=== PATIENT | female | born 1985 | race Caucasian/White ===

== ENCOUNTER 2019-11-29 08:40 | Inpatient (IN) | payer BC ==
[~2019-11-29] VITALS: Ht 165.1 cm; Wt 59.5 kg
[2019-11-29] MEDS ORDERED: NS 1,000 ML IV ONE ×2 (09:45→11:00)
[2019-11-29] MEDS ORDERED: ONDANSETRON 4MG/2ML VIAL IV ONE ×2 (09:45→15:30)
[2019-11-29] MEDS: MORPHINE 2 MG/ML 1ML VIAL (J2270) IV PRN ×4 (09:54→22:25)
[2019-11-29] MEDS ORDERED: ISOVUE-370 76% 100ML VIAL As Ordered ONE (10:01)
[2019-11-29 10:02] LABS: BASO # 0.1 10^3/uL (0.0-0.2); BASO % 0.4 % (0.0-1.0); EOS # 0.1 10^3/uL (0.0-0.5); EOS % 0.4 % (0.0-3.0); HEMATOCRIT 40.8 % (36.0-47.0); HEMOGLOBIN 13.3 g/dl (12.0-15.5); LYMPH # 1.5 10^3/uL (1.5-5.0); LYMPH % 9.3 % (24.0-44.0); MEAN CORPUSCULAR HEMOGLOBIN 28.1 pg (27.0-33.0); MEAN CORPUSCULAR HGB CONC 32.6 g/dl (32.0-36.5); MEAN CORPUSCULAR VOLUME 86.1 fl (80.0-96.0); MONO # 0.4 10^3/uL (0.0-0.8); MONO % 2.4 % (0.0-5.0); NEUTROPHILS # 13.7 10^3/uL (1.5-8.5); NEUTROPHILS % 87.1 % (36.0-66.0); PLATELET COUNT, AUTOMATED 330 10^3/uL (150-450); RED BLOOD COUNT 4.74 10^6/uL (4.00-5.40); WHITE BLOOD COUNT 15.7 10^3/uL (4.0-10.0)
[2019-11-29 10:26] LABS: ALBUMIN 4.3 GM/DL (3.2-5.2); BILIRUBIN,DIRECT 0.1 MG/DL (0.0-0.2); BILIRUBIN,TOTAL 0.3 MG/DL (0.2-1.0)
--- NOTE | 2019-11-29 10:30 | REPVR ---
PROCEDURE INFORMATION: Exam: CT Abdomen And Pelvis With Contrast Exam date and time: 11/29/2019 9:38 AM Age: 34 years old Clinical indication: Abdominal pain; Additional info: Lower abdominal pain TECHNIQUE: Imaging protocol: Computed tomography of the abdomen and pelvis with intravenous contrast. Radiation optimization: All CT scans at this facility use at least one of these dose optimization techniques: automated exposure control; mA and/or kV adjustment per patient size (includes targeted exams where dose is matched to clinical indication); or iterative reconstruction. Contrast material: ISOVUE 370; Contrast volume: 100 ml; Contrast route: INTRAVENOUS (IV); COMPARISON: No relevant prior studies available. FINDINGS: Pleural space: No acute airspace or pleural disease. Liver: Focal fatty infiltration of the liver. Punctate calcification contiguous with the posterior capsular surface of the liver. Gallbladder and bile ducts: Status post cholecystectomy. Pancreas: Borderline pancreatic ductal dilatation without focal mass. Spleen: No splenomegaly. Adrenals: Unremarkable adrenals. Kidneys and ureters: Normal renal morphology. No hydronephrosis. Stomach and bowel: Mild wall thickening in the nondistended stomach and jejunum. Marked wall thickening in the right and transverse colon, in a pattern of colitis. Appendix: Status post appendectomy. Intraperitoneal space: Dependent free fluid in the cul-de-sac. Vasculature: Normal caliber of the abdominal aorta. Lymph nodes: Subcentimeter lymph nodes. Bladder: Unremarkable bladder. Reproductive: Ovarian follicles and cysts, including a 1.5 cm left ovarian cyst. Bones/joints: Lumbar disc bulging. Soft tissues: Bilateral breast implants. Small fat containing umbilical hernia. IMPRESSION: 1. Marked wall thickening in the right and transverse colon, in a pattern of colitis. 2. Dependent free fluid in the cul-de-sac. 3. Additional findings as described above. Electronically signed by: Luis Heart On 11/29/2019 10:30:36 AM
[2019-11-29] MEDS ORDERED: metroNIDAZOLE 500 MG in IV 1 EA IV ONE (11:00)
[2019-11-29] MEDS ORDERED: CIPROFLOXACIN 400 MG in IV 1 EA IV ONE (11:00)
[2019-11-29] MEDS ORDERED: MORPHINE 2 MG/ML 1ML VIAL (J2270) IV PRN (15:30)
--- NOTE | 2019-11-29 16:34 | HPEPDOC ---
[facility] Medical History & Physical Date of Admission Nov 29, 2019 Date of Service: Nov 29, 2019 Attending Physician: SIL MARINA MD History and Physical CHIEF COMPLAINT: abd pain HISTORY OF PRESENT ILLNESS: 34 y/o F with PMHx endometriosis, colitis in reporting negative colonoscopy who presents with abd pain. Pt notes pain started at 2m, sharp, crampy greatest in lower quad and left side. +N/V/diarrhea, which have resolved. No bleeding. Pt denies cp/sob/palpitations. Currently starting to feel better but still with nausea and abd discomfort.Will place under observation. PAST MEDICAL HISTORY: As per HPI PAST SURGICAL HISTORY: appendectomy, cholecystomy SOCIAL HISTORY: denies tobacco, alcohol, illicit drugs FAMILY HISTORY: No f/m hx of GI dz ALLERGIES: Please see below. REVIEW OF SYSTEMS: HEENT: Denies sore throat/headache CARDIOVASCULAR: Denies chest pain/palpitations RESPIRATORY: Denies shortness of breath/cough GASTROINTESTINAL: + nausea/vomiting GENITOURINARY: Denies dysuria/urinary urgency. MUSCULOSKELETAL: Denies myalgias/arthralgias NEUROLOGICAL: Denies any focal weakness HOME MEDICATIONS: Please see below. PHYSICAL EXAMINATION: Vitals: (see below) General: No acute distress, laying comfortably in bed. HEENT: Moist mucous membranes. Neck: No JVD or lymphadenopathy Cardiac: RRR, No murmurs Pulm: Clear to auscultation b/l. No wheezing, rhonchi Abd: TTP Lower quad and Left side. No rebound/guarding/rigidity. ND + BS Ext: No edema or cyanosis LABORATORY DATA: See below. IMAGING: CT a/p FINDINGS: Pleural space: No acute airspace or pleural disease. Liver: Focal fatty infiltration of the liver. Punctate calcification contiguous with the posterior capsular surface of the liver. Gallbladder and bile ducts: Status post cholecystectomy. Pancreas: Borderline pancreatic ductal dilatation without focal mass. Spleen: No splenomegaly. Adrenals: Unremarkable adrenals. Kidneys and ureters: Normal renal morphology. No hydronephrosis. Stomach and bowel: Mild wall thickening in the nondistended stomach and jejunum. Marked wall thickening in the right and transverse colon, in a pattern of colitis. Appendix: Status post appendectomy. Intraperitoneal space: Dependent free fluid in the cul-de-sac. Vasculature: Normal caliber of the abdominal aorta. Lymph nodes: Subcentimeter lymph nodes. Bladder: Unremarkable bladder. Reproductive: Ovarian follicles and cysts, including a 1.5 cm left ovarian cyst. Bones/joints: Lumbar disc bulging. Soft tissues: Bilateral breast implants. Small fat containing umbilical hernia. IMPRESSION: 1. Marked wall thickening in the right and transverse colon, in a pattern of colitis. 2. Dependent free fluid in the cul-de-sac. 3. Additional findings as described above. ASSESSMENT/PLAN: 1. Colitis - with leukocytosis h/o coliits feb 2019 with reported negative colonoscopy. IVF, IV Cipro/flagyl until tolerating po. IV morphine/tylenol. Needs outpt GI f/u. GI panel if pt develops diarrhea. DVT Prophy: Lovenox. Vital Signs Vital Signs Date Time Temp Pulse Resp B/P (MAP) Pulse Ox O2 Delivery O2 Flow Rate FiO2 11/29/19 15:34 18 11/29/19 15:00 77 119/71 (87) 100 Room Air 11/29/19 13:57 96.4 Laboratory Data Labs 24H Laboratory Tests 2 11/29/19 09:25: Immature Granulocyte % (Auto) 0.4, Neutrophils (%) (Auto) 87.1H, Lymphocytes (%) (Auto) 9.3L, Monocytes (%) (Auto) 2.4, Eosinophils (%) (Auto) 0.4, Basophils (%) (Auto) 0.4, Neutrophils # (Auto) 13.7H, Lymphocytes # (Auto) 1.5, Monocytes # (Auto) 0.4, Eosinophils # (Auto) 0.1, Basophils # (Auto) 0.1, Nucleated Red Blood Cells % (auto) 0.0, Urine Color YELLOW, Urine Appearance CLEAR, Urine pH 5.0, Urine Specific [place] 1.025, Urine Protein NEGATIVE, Urine Glucose (UA) NEGATIVE, Urine Ketones 1+H, Urine Blood NEGATIVE, Urine Nitrite NEGATIVE, Urine Bilirubin NEGATIVE, Urine Urobilinogen 0.2, Urine Leukocyte Esterase NEGATIVE, Urine WBC (Auto) 5H, Urine RBC (Auto) 2, Urine Hyaline Casts (Auto) 0, Urine Bacteria (Auto) NEGATIVE, Urine Squamous Epithelial Cells 4, Urine Mucus (Auto) SMALL, Urine Sperm (Auto) , Total Bilirubin 0.3, Direct Bilirubin 0.1, Aspartate Amino Transf (AST/SGOT) 19, Alanine Aminotransferase (ALT/SGPT) 24, Alkaline Phosphatase 56, Total Protein 8.0, Albumin 4.3, Albumin/Globulin Ratio 1.2, Lipase 115 CBC/BMP Laboratory Tests 11/29/19 09:25 Home Medications No Active Prescriptions or Reported Meds Allergies Coded Allergies: metoclopramide (Verified Adverse Reaction, Unknown, jittery, 11/29/19) A-FIB/CHADSVASC A-FIB History Current/History of A-Fib/PAF?: No SIL MARINA MD Nov 29, 2019 16:34
[2019-11-29 17:30] VITALS: BP 110/59
[2019-11-29 17:47] LABS: BLOOD UREA NITROGEN 6 MG/DL (7-18); CALCIUM LEVEL 8.5 MG/DL (8.5-10.1); CARBON DIOXIDE LEVEL 22 MEQ/L (21-32); CHLORIDE LEVEL 110 MEQ/L (98-107); CREATININE FOR GFR 0.58 MG/DL (0.55-1.30); GLOMERULAR FILTRATION RATE > 60.0 (>60); GLUCOSE, FASTING 80 MG/DL (70-100); SODIUM LEVEL 141 MEQ/L (136-145)
[2019-11-29] MEDS ORDERED: ONDANSETRON 4MG/2ML VIAL IV PRN (18:00)
[2019-11-29] MEDS: NS 1,000 ML IV SCH (18:01)
[2019-11-29] MEDS ORDERED: PILL CUTTER 1 EACH XX PRN (18:45)
[2019-11-29] MEDS: metroNIDAZOLE 500 MG in IV 1 EA IV SCH (19:46)
[2019-11-29] MEDS: FEXOFENADINE 60 MG TAB PO SCH (19:46)
[2019-11-29 20:00] VITALS: BP 112/69
[2019-11-29] MEDS: ACETAMINOPHEN TAB 650MG DOSE (2X325MG) PO PRN (20:03)
[2019-11-29] MEDS: CIPROFLOXACIN 400 MG in IV 1 EA IV SCH (21:06)
[2019-11-30] VITALS: BP 105/57
[2019-11-30] MEDS: metroNIDAZOLE 500 MG in IV 1 EA IV SCH ×2 (03:36→11:30)
[2019-11-30] MEDS: ACETAMINOPHEN TAB 650MG DOSE (2X325MG) PO PRN (03:48)
[2019-11-30 04:00] VITALS: BP 120/70
[2019-11-30] MEDS: MORPHINE 2 MG/ML 1ML VIAL (J2270) IV PRN ×2 (04:15→08:28)
[2019-11-30 07:08] LABS: HEMATOCRIT 36.2 % (36.0-47.0); HEMOGLOBIN 12.3 g/dl (12.0-15.5); MEAN CORPUSCULAR HEMOGLOBIN 28.9 pg (27.0-33.0); MEAN CORPUSCULAR VOLUME 85.2 fl (80.0-96.0); PLATELET COUNT, AUTOMATED 304 10^3/uL (150-450); RED BLOOD COUNT 4.25 10^6/uL (4.00-5.40); WHITE BLOOD COUNT 13.1 10^3/uL (4.0-10.0)
[2019-11-30 07:35] LABS: ALBUMIN 3.4 GM/DL (3.2-5.2); ALT/SGPT 18 U/L (12-78); BILIRUBIN,TOTAL 0.5 MG/DL (0.2-1.0); BLOOD UREA NITROGEN 3 MG/DL (7-18); CARBON DIOXIDE LEVEL 25 MEQ/L (21-32); CHLORIDE LEVEL 108 MEQ/L (98-107); CREATININE FOR GFR 0.54 MG/DL (0.55-1.30); GLOMERULAR FILTRATION RATE > 60.0 (>60); GLUCOSE, FASTING 89 MG/DL (70-100); MAGNESIUM LEVEL 1.9 MG/DL (1.8-2.4); POTASSIUM SERUM 3.8 MEQ/L (3.5-5.1); SODIUM LEVEL 140 MEQ/L (136-145); TOTAL PROTEIN 6.3 GM/DL (6.4-8.2)
[2019-11-30 08:00] VITALS: BP 118/67
[2019-11-30] MEDS: FEXOFENADINE 60 MG TAB PO SCH (08:26)
[2019-11-30] MEDS: CIPROFLOXACIN 400 MG in IV 1 EA IV SCH (08:26)
[2019-11-30] MEDS: NS 1,000 ML IV SCH (08:26)
[2019-11-30] MEDS ORDERED: ENOXAPARIN 40MG/0.4ML SYRINGE (J1650 PER 10MG) SC SCH (09:00)
[2019-11-30] MEDS ORDERED: FLAG500T PO ×2 (10:36→13:48)
[2019-11-30] MEDS ORDERED: CIPR-249 PO (10:36)
[2019-11-30] MEDS ORDERED: OXYC1TAB23 PO (10:37)
--- NOTE | 2019-11-30 13:53 | IPNPDOC ---
Date Seen The patient was seen on 11/30/19. Progress Note Discharge summary dictated VS, I&O, 24H, Fishbone Vital Signs/I&O Vital Signs Date Time Temp Pulse Resp B/P (MAP) Pulse Ox O2 Delivery O2 Flow Rate FiO2 11/30/19 12:00 97.8 85 18 98 Room Air 11/30/19 08:00 118/67 (84) I&O- Last 24 Hours up to 6 AM 11/30/19 06:00 Intake Total 3420 ml Output Total 925 ml Balance 2495 ml Laboratory Data 24H LABS Laboratory Tests 2 11/29/19 17:12: Anion Gap 9, Glomerular Filtration Rate > 60.0, Calcium Level 8.5, Magnesium Level 2.0 11/29/19 18:15: Lactic Acid Level 1.1 11/30/19 06:27: 11/30/19 06:30: Anion Gap 7L, Glomerular Filtration Rate > 60.0, Calcium Level 8.0L, Magnesium Level 1.9, Nucleated Red Blood Cells % (auto) 0.0, Total Bilirubin 0.5#, Aspartate Amino Transf (AST/SGOT) 13, Alanine Aminotransferase (ALT/SGPT) 18, Alkaline Phosphatase 47, Total Protein 6.3#L, Albumin 3.4#, Albumin/Globulin Ratio 1.2 CBC/BMP Laboratory Tests 11/29/19 17:12 11/30/19 06:30 Microbiology Microbiology 11/29/19 Blood Culture, Received Pending 11/29/19 Blood Culture, Received Pending EVELIN MUÑIZ MD Nov 30, 2019 13:53
[2019-11-30] MEDS ORDERED: TRAM50TA2 PO ×2 (14:39→14:41)
[2019-11-30] MEDS ORDERED: traMADol 50 MG TAB PO PRN ×2 (14:45)
[2019-11-30 16:00] VITALS: BP 130/75
[2019-12-07 16:12] LABS: Chitobioside Carbohydrat (ACCA 12 units (0-90); Laminaribioside Carbohyd (ALCA 16 units (0-60); Mannobioside Carbohydrat (AMCA 23 units (0-100); Saccharomyces cerevisiae IgG A 45 units (0-50)
--- NOTE | 2019-12-27 15:49 | DSES ---
DATE OF ADMISSION: 11/29/2019 DATE OF DISCHARGE: 11/30/2019 PRIMARY DISCHARGE DIAGNOSIS: Colitis, history of endometriosis. DISCHARGE MEDICATIONS: * Ciprofloxacin 500 mg twice daily for 7 days. * Flagyl 500 mg three times daily for 7 days. * Percocet 5/325 one tab three times daily as needed for pain, maximum daily dose of 3 5-day supply. HOSPITAL COURSE: This is a 34-year-old female with prior history of colitis, endometriosis, had a colonoscopy down in [place], but the report is not available, presented with left lower quadrant abdominal pain without fever or chills, bright red blood per rectum, melena or black, tarry stools, admitted for colitis found on CT with a white count of 15,000. The patient was kept n.p.o., kept on IV fluids with hypoglycemic protocol, started on IV Cipro and Flagyl with improvement in the abdominal pain. Her diet was advanced to full liquids and has tolerated a soft mechanical diet with decreasing white count from 15.7 to 13.1, remained afebrile. Inflammatory bowel disease serology has been sent, result of which is still pending. She had no electrolyte imbalance, nausea or vomiting or fever. She was instructed to follow up with her outpatient application performance engineer in [place] on returning home. PHYSICAL EXAMINATION ON DISCHARGE: VITAL SIGNS: Temperature 97.8, pulse 85, respiratory rate 18, blood pressure 118/67, oxygen saturation 98% on room air. HEENT: Anicteric sclerae, no jaundice. Pupils round and reactive. Extraocular muscles are intact. Moist mucous membranes. LUNGS: Clear to auscultation. No rales, rhonchi or wheezes. HEART: S1, S2, sinus rhythm, no murmurs, rubs or gallops. ABDOMEN: Soft, left lower quadrant slightly tender without rebound or guarding, positive bowel sounds. EXTREMITIES: No clubbing, cyanosis, or pitting edema. DISCHARGE LABORATORY DATA: White count 13.1. Admission white count was 15.7, hemoglobin of 12, hematocrit 36, platelet count 304. Sodium 140, potassium 3.8, chloride 108, bicarbonate 25, BUN 3, creatinine 0.54, glucose of 89, magnesium of 1.9. Blood cultures are pending. IMAGING: CT abdomen and pelvis 11/29/2019 thickening of the right and transverse colon in pattern of colitis. Dependent free fluid in the cul-de-sac. Bilateral breast implants. Lumbar disk bulging. Ovarian follicles and cyst measuring 1.5 cm and left ovarian cyst. Time spent on discharge 30 minutes. MTDD
== END 2019-11-30 18:50 | disposition home or self-care (01) | DRG 249 ==
LOC: M ED 08:40 → M ED INP 16:22 → ENRESERV 16:54 → M PED 17:30
PROVIDERS: ADMIT Internal Medicine; ATTEND General Practice
DX: K52.9 Noninfective gastroenteritis and colitis, unspecified (principal); D72.829 Elevated white blood cell count, unspecified; Z88.8 Allergy status to other drugs, medicaments and biological substances